=== PATIENT | female | born 1980 | race Asian ===

== ENCOUNTER 2020-04-13 09:27 | Inpatient (IN) | payer MEDICAID, SELFPAY ==
[~2020-04-13] VITALS: Ht 154.9 cm; Wt 56.7 kg
[2020-04-13 09:34] VITALS: BP 101/26
--- NOTE | 2020-04-13 09:44 | NUR ---
39 Y/O FEMALE BIBA FROM HOME, PT IS COVID + FOR ONE WEEK, PT IS SOB/ RESP EVEN AND UNLABORED. NO ACUTE DISTRESS NOTED AT THIS TIME. WHEEZING HEARD BILAT UPPER AND LOWER LUNGS. PT IS 85% RA AT THIS TIME. PT STATES SHE USED HER INHALER AND TOOK PREDNISONE THIS MORNING WELL ONE NEBULIZING TX AT HOME DENIES ANY N/V/D PMH: ASTHMA NKDA
[2020-04-13] MEDS ORDERED: AZITHROMYCIN 1,000 MG in DEXTROSE 5% 500 ML IV ONE (10:00)
[2020-04-13] MEDS ORDERED: ZINC SULF 220 MG CAP PO ONE (10:00)
[2020-04-13] MEDS ORDERED: DEXAMETHASONE 10 MG/ML VIAL IVP ONE (10:00)
--- NOTE | 2020-04-13 10:09 | NUR ---
COVID KHLOE SWAB DONE.
[2020-04-13 10:11] LABS: BASOPHILS % (AUTO) 0.1 % (0.0-2.0); EOSINOPHILS % (AUTO) 0.1 % (0.0-4.0); HEMATOCRIT 33.4 % (36-48); HEMOGLOBIN 10.6 g/dL (12.0-16.0); LYMPHOCYTES # (AUTO) 0.6 K/uL (2.5-16.5); LYMPHOCYTES % (AUTO) 6.1 % (20.5-51.1); MEAN CORPUSCULAR HEMOGLOBIN 22 pg (27-31); MEAN CORPUSCULAR HGB CONC 32 g/dL (33-37); MEAN CORPUSCULAR VOLUME 68.7 fL (80-94); MONOCYTES # (AUTO) 0.6 K/uL (0.8-1.0); NEUTROPHILS # (AUTO) 7.8 K/uL (1.8-7.7); NEUTROPHILS % (AUTO) 86.7 % (42.2-75.2); PLATELET COUNT (AUTO) 306 K/uL (140-450); RED BLOOD CELL COUNT(AUTO) 4.87 MIL/uL (4.20-5.40); RED CELL DISTRIBUTION WIDTH 14.2 % (11.6-13.7)
--- NOTE | 2020-04-13 10:22 | NUR ---
RSV, FLU AND COVID KHLOE SENT TO LAB
[2020-04-13 10:29] LABS: ALBUMIN 3.8 g/dL (3.4-5.0); CREATININE 0.6 mg/dL (0.6-1.3); TOTAL BILIRUBIN 0.5 mg/dL (0.0-1.0)
[2020-04-13 10:30] LABS: C-REACTIVE PROTEIN QUANT 10.3 mg/dL (0.0-0.9)
[2020-04-13 10:36] LABS: LACTATE DEHYDROGENASE 276 U/L (81-234)
[2020-04-13 10:39] LABS: RSV NEGATIVE (NEGATIVE)
[2020-04-13 10:58] LABS: PROTHROMBIN TIME 9.7 secs (10.8-13.4)
[2020-04-13] MEDS ORDERED: POTASSIUM CHLORIDE 10 MEQ TABER PO ONE (11:15)
[2020-04-13] MEDS ORDERED: DOCUSATE SODIUM 100 MG GELCAP PO PRN (14:15)
[2020-04-13] MEDS ORDERED: ACETAMINOPHEN 325 MG TAB PO PRN (14:15)
[2020-04-13] MEDS: NACL 0.9% 1,000 ML IV SCH (14:15)
[2020-04-13] MEDS ORDERED: POTASSIUM CHLORIDE 10 MEQ TABER PO PRN (14:15)
[2020-04-13] MEDS ORDERED: ONDANSETRON 4 MG/2 ML VIAL IM/IVP PRN (14:15)
[2020-04-13] MEDS ORDERED: ZOLPIDEM 5 MG TAB PO PRN (14:15)
[2020-04-13] MEDS ORDERED: ALBUTEROL HFA MDI 90 MCG/ACTUATION 8 GM INH PRN ×2 (14:20→22:00)
[2020-04-13] MEDS: LORATADINE 10 MG TAB PO SCH (15:50)
[2020-04-13] MEDS: methylPREDNISolone SS 125 MG/2 ML VIAL IVP SCH ×2 (15:50→21:00)
[2020-04-13] MEDS: FAMOTIDINE 20 MG TAB PO SCH (15:50)
[2020-04-13 17:33] LABS: CHOL/HDL RATIO 2.8 (1-4.5); FREE T4 (FREE THYROXINE) 1.37 ng/dL (0.76-1.46); MAGNESIUM 2.6 mg/dL (1.8-2.4); THYROID STIMULATING HORMONE 1.67 uIU/mL (0.34-3.74)
--- NOTE | 2020-04-13 19:30 | NUR ---
Patient appears to be resting comfortably in CHAIR Vital Signs within normal limits. Respirations even and unlabored.
--- NOTE | 2020-04-14 06:00 | NUR ---
Patient appears to be resting comfortably in CHAIR. Vital Signs STABLE,THE WHOLE NIGHT, NO COMPLAINED MADE
[2020-04-14] MEDS: NACL 0.9% 1,000 ML IV SCH ×2 (07:44→23:44)
[2020-04-14] MEDS ORDERED: remdesivir CLINICAL MONITORING 1 EA MISC MC PRN (08:15)
[2020-04-14] MEDS: methylPREDNISolone SS 125 MG/2 ML VIAL IVP SCH ×2 (08:37→21:00)
[2020-04-14] MEDS: LORATADINE 10 MG TAB PO SCH (08:38)
[2020-04-14] MEDS: FAMOTIDINE 20 MG TAB PO SCH (08:38)
[2020-04-14] MEDS: HYDROcodone/APAP 7.5/325 MG 1 TAB PO PRN (08:38)
[2020-04-14] MEDS ORDERED: COMMUNICATION ORDER MC SCH (09:00)
--- NOTE | 2020-04-14 09:03 | NUR ---
PATIENT HAS BEEN SCREENED AND CATEGORIZED MODERATE NUTRITION RISK. PATIENT WILL BE SEEN WITHIN 3-5 DAYS OF ADMISSION. 04/15/20 04/17/[address]
--- NOTE | 2020-04-14 09:04 | NUR ---
novel swab collected and sent to lab.
[2020-04-14 09:08] LABS: BASOPHILS % (AUTO) 0.2 % (0.0-2.0); EOSINOPHILS % (AUTO) 0.5 % (0.0-4.0); HEMATOCRIT 34.6 % (36-48); HEMOGLOBIN 10.9 g/dL (12.0-16.0); LYMPHOCYTES # (AUTO) 1.7 K/uL (2.5-16.5); LYMPHOCYTES % (AUTO) 26.3 % (20.5-51.1); MEAN CORPUSCULAR HEMOGLOBIN 22 pg (27-31); MEAN CORPUSCULAR HGB CONC 31 g/dL (33-37); MEAN CORPUSCULAR VOLUME 70.1 fL (80-94); MONOCYTES # (AUTO) 0.9 K/uL (0.8-1.0); MONOCYTES % (AUTO) 14.6 % (1.7-9.3); NEUTROPHILS # (AUTO) 3.7 K/uL (1.8-7.7); NEUTROPHILS % (AUTO) 58.4 % (42.2-75.2); PLATELET COUNT (AUTO) 362 K/uL (140-450); RED BLOOD CELL COUNT(AUTO) 4.94 MIL/uL (4.20-5.40); RED CELL DISTRIBUTION WIDTH 14.6 % (11.6-13.7); WHITE BLOOD COUNT (AUTO) 6.3 K/uL (4.8-10.8)
[2020-04-14] MEDS ORDERED: cefTRIAXone 1,000 MG VIAL ONE (09:21)
[2020-04-14] MEDS: ASCORBIC ACID 500 MG TAB PO SCH (09:40)
[2020-04-14] MEDS: ZINC SULF 220 MG CAP PO SCH (09:40)
[2020-04-14] MEDS: PANTOPRAZOLE 40 MG TABEC PO SCH (09:41)
[2020-04-14] MEDS: AZITHROMYCIN 250 MG TAB PO SCH (09:41)
[2020-04-14 09:48] LABS: ANION GAP 15.8 (8-16); CARBON DIOXIDE 26.8 mmol/L (21-32); CREATININE 0.6 mg/dL (0.6-1.3); POTASSIUM 3.6 mmol/L (3.5-5.1)
--- NOTE | 2020-04-14 10:43 | NUR ---
pt states unable to provide urine sample at this time.
--- NOTE | 2020-04-14 10:43 | NUR ---
Pt resting in chair. No acute distress noted. Pt oxygen level decreased to 2L NC, saO2 98%.
--- NOTE | 2020-04-14 10:48 | NUR ---
pt taken to restroom via w/c.
--- NOTE | 2020-04-14 11:00 | NUR ---
WHEELCHAIR ASSISTED FROM TENT TO ER BED 1.
[2020-04-14 11:46] LABS: BILIRUBIN,URINE NEGATIVE (NEGATIVE); BLOOD, URINE NEGATIVE (NEGATIVE); COLOR,URINE YELLOW (YELLOW); LEUKOCYTE ESTERASE ,URINE NEGATIVE (NEGATIVE); NITRITE, URINE NEGATIVE (NEGATIVE); PH,URINE 6.5 (5.0-9.0); UGLUCOSE NEGATIVE (NEGATIVE)
[2020-04-14 11:58] LABS: BARBITURATE, URINE NEGATIVE ng/ml (NEG <=200); BENZODIAZEPINE, URINE NEGATIVE ng/mL (NEG <=200); CANNABINOID, URINE NEGATIVE ng/mL (NEG <=50); COCAINE, URINE NEGATIVE ng/mL (NEG <=300); OPIATE, URINE POSITIVE ng/mL (NEG <=2000); PHENCYCLIDINE SCREEN,URINE NEGATIVE ng/mL (NEG <=25)
[2020-04-14] MEDS ORDERED: REMDESIVIR (EUA) 200 MG in NACL 0.9% 100 ML IV SCH (12:00)
--- NOTE | 2020-04-14 12:20 | NUR ---
SOCIAL WORK NOTE: Patient's Orientation Unable To Assess Information Provided By MING RILEY - BROTHLOPEZ Comments SW WAS UNABLE TO MEET PATIENT AT BEDSIDE DUE TO MEDICAL CONDITION. SW COMPLETED ASSESSMENT IWTH PATIENT'S BROTHER. Buggy Runner, Realtionship and Phone Number MING GLOVER [phone] Healthcare Power of Contract Recruiter No Does Patient Have a POLST No Identifying Problems No Social Work Triggers Is A Social Work Consult Needed No Mandate Report Filed No Explanation Of Identifying Problems PATIENT IS A 39-YEAR-OLD FEMALE ADMITTED FOR COVID/PNA/HYPOXIA. PATIENT HAS PMHX OF ASTHMA. PATIENT'S BROTHER REPOTED NO HISTORY OF SUBSTANCE ABUSE OR MENTAL HEALTH. Admitted From Home Pre-Admission Level Of Functioning Status Independent/Ambulatory Prior Resources/Services Used In Last 12 Months No Prior Resources Used Prior DME No Prior DME Used Dialysis Comments N/A Living Situation Apartment Lives With Family Home Support No Caregiver Issues Financial Issues No Known Financial Issue Factors/Needs No D/C Needs Identified Pt/Rep Participated In Discharge Plan Yes Patient/Family Agress With Discharge Plan Yes Discharge Plan Comments TENTATIVE DISCHARGE PLAN IS FOR PATIENT TO RETURN HOME. DC Plan Status Initiated
[2020-04-14 13:01] LABS: RBC,URINE 0-5 /HPF (0-5); WBC,URINE 0-5 /HPF (0-5)
[2020-04-14 13:02] LABS: APPEARANCE,URINE SLIGHTLY HAZY (CLEAR)
--- NOTE | 2020-04-14 16:38 | NUR ---
Stable VSS Afebrile Mild SOB C/O chest pain Given [place] as ordered
--- NOTE | 2020-04-14 19:30 | NUR ---
RECEIVED REPORT FROM BRIDGER GILES FOR CONTINUITY OF CARE.
--- NOTE | 2020-04-14 21:10 | NUR ---
Kenyon ford in [facility] - 04/15/20 at 0249 by DONAVAN JORGE AT THIS TIME WAS 166.
--- NOTE | 2020-04-14 21:40 | NUR ---
PT LAYING IN BED IN NO ACUTE DISTRESS NOTED, VSS. BREATHING EVEN AND UNLABORED 2 L OXYGEN VIA NC. SPO2 AT 96%. IVF RUNNING AT THIS TIME OF 0.9% NS. CONTINUES ON CARDIAC MONITORING, PULSE OXIMETRY AND BP MONITORING. BED LOCKED AND IN LOWEST POSITION. SIDE RAIL X1 UP FOR SAFETY.
[2020-04-15] MEDS: HYDROcodone/APAP 7.5/325 MG 1 TAB PO PRN ×3 (05:05→20:40)
[2020-04-15] MEDS: guaiFENesin DM 200/20 MG-10 ML 10 ML UDC PO PRN (05:05)
--- NOTE | 2020-04-15 05:15 | NUR ---
PT C/O COUGH AND CHEST PAIN DUE TO EXCESIVE COUGHING, PT WAS GIVEN ROBITUSSIN AND NORCO FOR PAIN. WILL CONTINUE TO MONITOR.
--- NOTE | 2020-04-15 06:00 | NUR ---
PT NO LONGER C/O CHEST PAIN R/T EXCESSIVE COUGHING AT THIS TIME. STATES HER PAIN IS 0/10.
--- NOTE | 2020-04-15 07:23 | NUR ---
Received report from CHAN Aiken. Transfer of care at this time.
--- NOTE | 2020-04-15 07:28 | NUR ---
REPORT GIVEN TO HEATH GILES FOR CONTINUITY OF CARE.
--- NOTE | 2020-04-15 07:44 | NUR ---
IV to left AC infiltrating, d/c'd. Established new IV to left hand 22G, good blood return. Pt resting, VSS, BP 90s/50s, HR 50s, pt states this is her baseline, asymptomatic at this time. Will continue to monitor.
[2020-04-15 08:08] LABS: T4 (THYROXINE) 8.8 ug/dL (4.5-12.0)
--- NOTE | 2020-04-15 08:30 | NUR ---
Provided breakfast tray, HOB elevated, VSS, will continue to monitor.
[2020-04-15 08:32] LABS: BASOPHILS % (AUTO) 0.1 % (0.0-2.0); HEMATOCRIT 29.9 % (36-48); HEMOGLOBIN 9.4 g/dL (12.0-16.0); LYMPHOCYTES # (AUTO) 0.7 K/uL (2.5-16.5); MEAN CORPUSCULAR HEMOGLOBIN 22 pg (27-31); MEAN CORPUSCULAR HGB CONC 31 g/dL (33-37); MEAN CORPUSCULAR VOLUME 69.5 fL (80-94); MONOCYTES # (AUTO) 0.6 K/uL (0.8-1.0); MONOCYTES % (AUTO) 8.7 % (1.7-9.3); NEUTROPHILS # (AUTO) 5.4 K/uL (1.8-7.7); NEUTROPHILS % (AUTO) 80.2 % (42.2-75.2); PLATELET COUNT (AUTO) 341 K/uL (140-450); RED BLOOD CELL COUNT(AUTO) 4.31 MIL/uL (4.20-5.40); RED CELL DISTRIBUTION WIDTH 14.4 % (11.6-13.7); WHITE BLOOD COUNT (AUTO) 6.7 K/uL (4.8-10.8)
[2020-04-15] MEDS: LORATADINE 10 MG TAB PO SCH (08:58)
[2020-04-15] MEDS: AZITHROMYCIN 250 MG TAB PO SCH (09:00)
[2020-04-15] MEDS: PANTOPRAZOLE 40 MG TABEC PO SCH (09:01)
[2020-04-15] MEDS: FAMOTIDINE 20 MG TAB PO SCH (09:01)
[2020-04-15] MEDS: ZINC SULF 220 MG CAP PO SCH (09:02)
[2020-04-15] MEDS: ASCORBIC ACID 500 MG TAB PO SCH (09:02)
[2020-04-15 09:32] LABS: ALBUMIN 3.1 g/dL (3.4-5.0); ANION GAP 13.8 (8-16); CARBON DIOXIDE 24.1 mmol/L (21-32); CREATININE 0.5 mg/dL (0.6-1.3); MAGNESIUM 2.4 mg/dL (1.8-2.4); PHOSPHORUS 2.8 mg/dL (2.5-4.9); POTASSIUM 3.9 mmol/L (3.5-5.1); TOTAL BILIRUBIN 0.3 mg/dL (0.0-1.0)
[2020-04-15] MEDS ORDERED: cefTRIAXone 1,000 MG VIAL ONE (10:11)
--- NOTE | 2020-04-15 10:46 | NUR ---
Pt up to bedside commode, no signs of repiratory distress, will continue to monitor.
--- NOTE | 2020-04-15 11:52 | NUR ---
Pt given lunch tray, HOB elevated, VSS stable, will continue to monitor.
[2020-04-15] MEDS: REMDESIVIR (EUA) 100 MG in NACL 0.9% 100 ML IV SCH (12:45)
--- NOTE | 2020-04-15 13:46 | NUR ---
Pt requests medication for abdominal cramping 09/30.
--- NOTE | 2020-04-15 14:17 | NUR ---
Titrated O2 to 3LNC O2 at 96%, will continue to monitor.
--- NOTE | 2020-04-15 14:30 | NUR ---
Dr. Amaya, mail sorter and delivery at pt bedside.
--- NOTE | 2020-04-15 15:09 | NUR ---
VINCENT ANGEL: RECEIVED ORDER FOR HOME FAXED ORDER TO [facility] Addendum: 04/15/20 at 1604 by Annie Salazar CM VINCENT ANGEL: SPOKE TO ER NURSE PATIENT SATS AT 94% ON ROOM AIR. THIS DOES NOT QUALIFY PATIENT FOR OXYGEN Addendum: 04/15/20 at 1619 by Annie Salazar CM VINCENT ANGEL: RECEIVED A CALL FROM RE[facility] AT [facility] PATIENT DOES NOT QUALIFY FOR OXYGEN
[2020-04-15] MEDS: NACL 0.9% 1,000 ML IV SCH (15:49)
--- NOTE | 2020-04-15 15:49 | NUR ---
RT at bedside for breathing treatment.
--- NOTE | 2020-04-15 18:01 | NUR ---
Pt repositioned, VSS, will continue to monitor.
--- NOTE | 2020-04-15 19:26 | NUR ---
Gave report to CHAN Chowdhury, transfered care at this time.
--- NOTE | 2020-04-15 20:40 | NUR ---
C/O PAIN RATED 5/10. MEDICATED ORDERED. DINNER TRAY SERVED
--- NOTE | 2020-04-15 22:00 | NUR ---
RESTING MORE COMFORTABLY. RT IN PROGRESS
--- NOTE | 2020-04-16 02:00 | NUR ---
RESTING IN BED WITH EYES CLOSED. RESPIRATIONS REGULAR AND UNLABORED.
[2020-04-16] MEDS: guaiFENesin DM 200/20 MG-10 ML 10 ML UDC PO PRN ×3 (06:02→23:21)
--- NOTE | 2020-04-16 07:14 | NUR ---
REPORT TO CHAN SERRANO
--- NOTE | 2020-04-16 07:16 | NUR ---
Report received from CHAN Chowdhury for continuity of care
[2020-04-16 08:20] LABS: BASOPHILS % (AUTO) 0.4 % (0.0-2.0); EOSINOPHILS % (AUTO) 0.7 % (0.0-4.0); HEMATOCRIT 32.5 % (36-48); LYMPHOCYTES # (AUTO) 2.1 K/uL (2.5-16.5); LYMPHOCYTES % (AUTO) 34.5 % (20.5-51.1); MEAN CORPUSCULAR HEMOGLOBIN 22 pg (27-31); MEAN CORPUSCULAR HGB CONC 31 g/dL (33-37); MEAN CORPUSCULAR VOLUME 70.5 fL (80-94); MONOCYTES # (AUTO) 0.4 K/uL (0.8-1.0); MONOCYTES % (AUTO) 6.2 % (1.7-9.3); NEUTROPHILS # (AUTO) 3.5 K/uL (1.8-7.7); NEUTROPHILS % (AUTO) 58.2 % (42.2-75.2); PLATELET COUNT (AUTO) 379 K/uL (140-450); RED BLOOD CELL COUNT(AUTO) 4.61 MIL/uL (4.20-5.40); RED CELL DISTRIBUTION WIDTH 14.4 % (11.6-13.7)
[2020-04-16 08:36] LABS: ALBUMIN 3.2 g/dL (3.4-5.0); CARBON DIOXIDE 24.4 mmol/L (21-32); CREATININE 0.7 mg/dL (0.6-1.3); MAGNESIUM 1.7 mg/dL (1.8-2.4); PHOSPHORUS 3.3 mg/dL (2.5-4.9); POTASSIUM 3.4 mmol/L (3.5-5.1); TOTAL BILIRUBIN 0.4 mg/dL (0.0-1.0)
--- NOTE | 2020-04-16 08:45 | NUR ---
Patient asking for albuteral breathing tx, patient taking O2 off. Called RT to give treatment
--- NOTE | 2020-04-16 09:10 | NUR ---
Patient brought regular diet tray for breakfast, ate 100% of tray, tolerated well
[2020-04-16] MEDS: NACL 0.9% 1,000 ML IV SCH (09:15)
--- NOTE | 2020-04-16 10:10 | NUR ---
SATURATION 98% ON SUPPLEMENTAL OXYGEN AT 4 LPM VIA NC POST HHN THERAPY TITRATED FIO2 TO 2 LPM
[2020-04-16] MEDS: LORATADINE 10 MG TAB PO SCH (11:05)
[2020-04-16] MEDS: PANTOPRAZOLE 40 MG TABEC PO SCH (11:06)
[2020-04-16] MEDS: FAMOTIDINE 20 MG TAB PO SCH (11:06)
[2020-04-16] MEDS: ZINC SULF 220 MG CAP PO SCH (11:06)
[2020-04-16] MEDS: ASCORBIC ACID 500 MG TAB PO SCH (11:06)
[2020-04-16] MEDS: AZITHROMYCIN 250 MG TAB PO SCH (11:07)
[2020-04-16] MEDS ORDERED: cefTRIAXone 1,000 MG VIAL ONE (11:11)
[2020-04-16] MEDS: REMDESIVIR (EUA) 100 MG in NACL 0.9% 100 ML IV SCH (12:37)
--- NOTE | 2020-04-16 12:38 | NUR ---
Patient asking for another HHN breathing treatment. Notified RT that patient would like treatment as soon as able
--- NOTE | 2020-04-16 12:45 | NUR ---
Patient c/o cough, robitussin cough syrup given
--- NOTE | 2020-04-16 13:09 | NUR ---
Patient brought regular diet tray for lunch, ate ~ 50%, tolerate well
--- NOTE | 2020-04-16 15:04 | NUR ---
Patient using bedside commode to void, had 2nd BM amd large amount of urine, patient on her period. Tolerated well, gait steady. IV patient left wrist #22g with NS at 60cc/hr.
[2020-04-16] MEDS ORDERED: MAGNESIUM OXIDE 400 MG TAB PO SCH (15:55)
[2020-04-16] MEDS ORDERED: POTASSIUM CHLORIDE 10 MEQ TABER PO SCH (15:55)
--- NOTE | 2020-04-16 17:59 | NUR ---
Patient c/o lung/rib pain from coughing, [place] 7.5mg PO given, will continue to monitor
[2020-04-16] MEDS: HYDROcodone/APAP 7.5/325 MG 1 TAB PO PRN ×2 (18:02→23:22)
--- NOTE | 2020-04-16 18:16 | NUR ---
Patient asleep after [place], VVS, in NAD, resp even and unlabored, O2 sat 97%
--- NOTE | 2020-04-16 19:39 | NUR ---
Detailed report given to CHAN Anthony for principal technical writer. Questions answered, meds and orders reviewed.
--- NOTE | 2020-04-16 19:40 | NUR ---
RECEIVED REPORT FROM CHAN SERRANO FOR CONTINUATION OF CARE AT THIS TIME.
--- NOTE | 2020-04-16 20:00 | NUR ---
PT IS RESTING AND POSITIONED FOR COMFORT. BED IS LOCKED AND IN LOWEST POSITION. PT IS CONNECTED TO THE HELPDESK ANALYST. SAO2@98% ON 4L VIA N/C. SIDE RAILSX1. PT IS NOT IN ANY ACUTE DISTRESS AT THIS TIME. CALL LIGHT IS WITHIN REACH. WILL CONTINUE TO MONITOR.
--- NOTE | 2020-04-16 22:00 | NUR ---
PT IS RESTING AND POSITIONED FOR COMFORT. BED IS LOCKED AND IN LOWEST POSITION. PT IS CONNECTED TO THE LOGISTICS PLANNER. SAO2@97% ON 4L VIA N/C. SIDE RAILSX1. PT IS NOT IN ANY ACUTE DISTRESS AT THIS TIME. CALL LIGHT IS WITHIN REACH. WILL CONTINUE TO MONITOR.
--- NOTE | 2020-04-16 23:00 | NUR ---
PT C/O PAIN AND COUGH, PRN NORCO AND COUGH MEDICATION TO BE ADMIN
--- NOTE | 2020-04-17 | NUR ---
PT STATED SHE WAS HUNGRY. PROVIDED PT WITH A TUNA SANDWICH. PT POSITIONED FOR COMFORT. BED IS LOCKED AND IN LOWEST POSITION. PT IS CONNECTED TO THE INTAKE MANAGER. SAO2@97% ON 4L VIA N/C. SIDE RAILSX1. PT IS NOT IN ANY ACUTE DISTRESS AT THIS TIME. CALL LIGHT IS WITHIN REACH. WILL CONTINUE TO MONITOR.
[2020-04-17] MEDS: NACL 0.9% 1,000 ML IV SCH ×2 (01:44→19:30)
--- NOTE | 2020-04-17 02:00 | NUR ---
PT PULLED OUT IV-IV CATHETER INTACT. NEW IV ESTABLISHED 20G IN THE LEFT HAND RUNNING NS @60MLS/HR PER MD ORDER, PT TOLERATED PROCEDURE WELL. PT CONNECTED TO THE LAMBSKIN TRIMMER. BED IS LOCKED AND IN LOWEST POSITION. SIDE RAILSX1. WILL CONTINUE TO MONITOR.
--- NOTE | 2020-04-17 02:14 | NUR ---
[facility] SWAB COLLECTED AND TAKEN TO LAB.
--- NOTE | 2020-04-17 04:00 | NUR ---
PT IS ASLEEP. VISIBLE RISE AND FALL OF CHEST NOTED. PT POSITIONED FOR COMFORT. BED IS LOCKED AND IN LOWEST POSITION. PT IS CONNECTED TO THE AUGER PRESS OPERATOR. SAO2@98% ON 4L VIA N/C. SIDE RAILSX1. PT IS NOT IN ANY ACUTE DISTRESS AT THIS TIME. CALL LIGHT IS WITHIN REACH. WILL CONTINUE TO MONITOR.
--- NOTE | 2020-04-17 06:00 | NUR ---
PT IS ASLEEP. VISIBLE RISE AND FALL OF CHEST NOTED. PT POSITIONED FOR COMFORT. BED IS LOCKED AND IN LOWEST POSITION. PT IS CONNECTED TO THE MANAGING DIRECTOR. SAO2@97% ON 4L VIA N/C. SIDE RAILSX1. PT IS NOT IN ANY ACUTE DISTRESS AT THIS TIME. CALL LIGHT IS WITHIN REACH. WILL CONTINUE TO MONITOR.
--- NOTE | 2020-04-17 06:55 | NUR ---
LAB AT BEDSIDE
--- NOTE | 2020-04-17 07:20 | NUR ---
REPORT GIVEN TO CHAN GAGNON FOR TRANSFER OF CARE. PT IS AWAKE. A/OX4. PT POSITIONED FOR COMFORT. BED IS LOCKED AND IN LOWEST POSITION. PT IS CONNECTED TO THE MIXER OPERATOR HELPER HOT METAL. SAO2@98% ON 4L VIA N/C. NS RUNNIG PER MD ORDERS. SIDE RAILSX1. PT IS NOT IN ANY ACUTE DISTRESS AT THIS TIME. CALL LIGHT IS WITHIN REACH.
--- NOTE | 2020-04-17 07:50 | NUR ---
Received report from CHAN Anthony. Pt found sitting in bed resting comfortably. VSS. Pt found on nasal canula 4L at 96%. Pt has NS running @60 ml/hr, IV to left hand 20 gauge, patent, no signs of infiltration. Pt denies any pain at this time. Denies SOB. Pt states "I'm feeling better today." Pt found NSR on the monitor. All needs addressed at this time. BSC emptied, cleaned and replaced bed xiao for patient. Aloe wipes left at bedside for patient. Pt given wet cloth to wipe face. Call light left within reach. Pt educated to use call light for any needs. Pt verbalized understanding.
[2020-04-17 07:55] LABS: BASOPHILS % (AUTO) 0.3 % (0.0-2.0); EOSINOPHILS % (AUTO) 0.3 % (0.0-4.0); HEMATOCRIT 29.5 % (36-48); HEMOGLOBIN 9.4 g/dL (12.0-16.0); LYMPHOCYTES # (AUTO) 1.5 K/uL (2.5-16.5); LYMPHOCYTES % (AUTO) 23.4 % (20.5-51.1); MEAN CORPUSCULAR HEMOGLOBIN 22 pg (27-31); MEAN CORPUSCULAR HGB CONC 32 g/dL (33-37); MEAN CORPUSCULAR VOLUME 68.7 fL (80-94); MONOCYTES # (AUTO) 0.7 K/uL (0.8-1.0); MONOCYTES % (AUTO) 11.6 % (1.7-9.3); NEUTROPHILS % (AUTO) 64.4 % (42.2-75.2); PLATELET COUNT (AUTO) 365 K/uL (140-450); RED BLOOD CELL COUNT(AUTO) 4.29 MIL/uL (4.20-5.40); RED CELL DISTRIBUTION WIDTH 14.2 % (11.6-13.7); WHITE BLOOD COUNT (AUTO) 6.2 K/uL (4.8-10.8)
--- NOTE | 2020-04-17 07:59 | NUR ---
Dr. Hermosillo evaluating pt at bedside.
[2020-04-17 08:17] LABS: ALBUMIN 3.1 g/dL (3.4-5.0); BILIRUBIN,DIRECT 0.1 mg/dL (0.0-0.3); TOTAL BILIRUBIN 0.4 mg/dL (0.0-1.0)
--- NOTE | 2020-04-17 08:46 | NUR ---
PT PROVIDED WITH BREAKFAST TRAY. EATING. NO DISTRESS NOTED.
[2020-04-17 08:55] LABS: ALBUMIN 3.1 g/dL (3.4-5.0); ANION GAP 12.8 (8-16); CARBON DIOXIDE 27.5 mmol/L (21-32); CREATININE 0.6 mg/dL (0.6-1.3); MAGNESIUM 2.2 mg/dL (1.8-2.4); PHOSPHORUS 3.2 mg/dL (2.5-4.9); POTASSIUM 3.3 mmol/L (3.5-5.1); TOTAL BILIRUBIN 0.4 mg/dL (0.0-1.0)
[2020-04-17] MEDS: AZITHROMYCIN 250 MG TAB PO SCH (08:59)
[2020-04-17] MEDS: LORATADINE 10 MG TAB PO SCH (08:59)
[2020-04-17] MEDS: FAMOTIDINE 20 MG TAB PO SCH (09:00)
[2020-04-17] MEDS: PANTOPRAZOLE 40 MG TABEC PO SCH (09:00)
[2020-04-17] MEDS: ASCORBIC ACID 500 MG TAB PO SCH (09:00)
[2020-04-17] MEDS: ZINC SULF 220 MG CAP PO SCH (09:00)
[2020-04-17] MEDS ORDERED: cefTRIAXone 1,000 MG VIAL ONE (10:53)
--- NOTE | 2020-04-17 11:00 | NUR ---
04/17/20 RD INITIAL ASSESSMENT COMPLETED PLEASE REFER TO NUTRITION ASSESSMENT UNDER CARE ACTIVITY FOR ESTIMATED NUTRITIONAL NEEDS. 1. CONTINUE REGULAR DIET TOLERATED 2. CONTINUE ENSURE BID 3. RD TO FOLLOW-UP 3-5 DAYS, MODERATE RISK INDIRA JOHNSON RD
[2020-04-17] MEDS: guaiFENesin DM 200/20 MG-10 ML 10 ML UDC PO PRN ×2 (11:29→21:30)
--- NOTE | 2020-04-17 11:30 | NUR ---
PT MEDICATED FOR COUGH PER PRN MEDICATIONS.
[2020-04-17] MEDS: REMDESIVIR (EUA) 100 MG in NACL 0.9% 100 ML IV SCH (12:00)
[2020-04-17] MEDS: HYDROcodone/APAP 7.5/325 MG 1 TAB PO PRN ×2 (14:51→21:30)
--- NOTE | 2020-04-17 14:57 | NUR ---
PATIENT MEDICATED FOR CHEST PAIN 5/10 PER PATIENT DUE TO COUGHING IT CAUSES HER CHEST PAIN, SITTING UP IN BED DOES NOT APPEAR TO BE IN ANY DISTRESS
--- NOTE | 2020-04-17 19:30 | NUR ---
RECEIVED REPORT FROM KATERINA RN FOR TRANSFER OF CARE. PT IS AWAKE. A/OX4. PT POSITIONED FOR COMFORT. BED IS LOCKED AND IN LOWEST POSITION. PT IS CONNECTED TO THE AUTOMOBILE MECHANIC RADIATOR. SAO2@99% ON 4L VIA N/C. NS RUNNIG PER MD ORDERS. SIDE RAILSX1. PT IS NOT IN ANY ACUTE DISTRESS AT THIS TIME. CALL LIGHT IS WITHIN REACH.
--- NOTE | 2020-04-17 20:30 | NUR ---
PROVIDED PT WITH HER DINNER MEAL TRAY
--- NOTE | 2020-04-17 21:00 | NUR ---
PT C/O PLEURITIC PAIN 7/10 WHEN COUGHING AND COUGH. PT REQUESTED PRN NORCO AND COUGH MEDICATION
--- NOTE | 2020-04-17 21:30 | NUR ---
CALLED AND GAVE REPORT TO CHAN DOUGLAS FOR TRANSFER OF CARE AND ADMISSION TO TELEMETRY.
[2020-04-17] MEDS ORDERED: BECL10.62 INH (21:40)
--- NOTE | 2020-04-17 21:50 | NUR ---
Patient will be admitted to care of . Admited to TELEMETRY. Will go to [id number]. Belongings list completed. Report to CHAN DOUGLAS.
[2020-04-17 22:10] VITALS: BP 109/55
--- NOTE | 2020-04-17 22:15 | NUR ---
RECEIVED REPORT FROM [facility] ER NURSE PATIENT IS AWAKE, ALERT, AND COOPERATIVE. RESPIRATION EVEN UNLABORED ON 4L NC O2. NO DISTRESS NOTED. SKIN IS WARM AND DRY. IV PATENT AND INTACT. HEART RATE REGULAR. LUNGS SOUNDS HEARD WHEEZES. BOWEL SOUNDS PRESENTS IN ALL QUADRANTS. ABDOMEN SOFT AND NON-TENDER. MRSA SCREEN DONE. VITALS WERE TAKEN. PLAN OF CARE WAS DISCUSSED. ALL SAFETY MEASURES IN PLACE. BED IS AT LOW POSITION. CALL LIGHT WITHIN REACH. WILL CONTINUE TO MONITOR.
--- NOTE | 2020-04-18 | NUR ---
MADE ROUNDS. PATIENT IS SLEEPING RESPIRATION EVEN UNLABORED ON 4L NC O2. NO DISTRESS NOTED. WILL CONTINUE TO MONITOR.
--- NOTE | 2020-04-18 02:45 | NUR ---
MADE ROUNDS. PATIENT IS SLEEPING RESPIRATION EVEN UNLABORED ON 4L NC O2. NO DISTRESS NOTED. WILL CONTINUE TO MONITOR.
[2020-04-18 04:00] VITALS: BP 95/51
--- NOTE | 2020-04-18 06:05 | NUR ---
PATIENT POTASSIUM LEVEL IS 3.3. PRN K-DUR GIVEN PER ORDER. WILL CONTINUE TO MONITOR.
--- NOTE | 2020-04-18 07:37 | NUR ---
ENDORSED PATIENT TO DAY SHIFT NURSE FOR CONTINUITY OF CARE.
--- NOTE | 2020-04-18 07:42 | NUR ---
RECEIVED REPORT FROM NIGHTSHIFT NURSE. PT RESTING IN BED. ABLE TO MAKE NEEDS KNOWN. RESPIRATIONS EVEN AND UNLABORED WITH NO SOB OR RESPIRATORY DISTRESS. SKIN WARM AND DRY TO TOUCH. IV SITE IN L HAND 20G IS CLEAN, DRY, AND INTACT. SAFETY MEASURES IN PLACE. WILL CONTINUE TO MONITOR
[2020-04-18 08:00] VITALS: BP 102/63
[2020-04-18] MEDS: ZINC SULF 220 MG CAP PO SCH (09:40)
[2020-04-18] MEDS: PANTOPRAZOLE 40 MG TABEC PO SCH (09:41)
[2020-04-18] MEDS: AZITHROMYCIN 250 MG TAB PO SCH (09:41)
[2020-04-18] MEDS: FAMOTIDINE 20 MG TAB PO SCH (09:41)
[2020-04-18] MEDS: ASCORBIC ACID 500 MG TAB PO SCH (09:42)
[2020-04-18] MEDS: LORATADINE 10 MG TAB PO SCH (09:42)
[2020-04-18 09:43] LABS: ANION GAP 12.6 (8-16); CARBON DIOXIDE 26.8 mmol/L (21-32); CREATININE 0.5 mg/dL (0.6-1.3); POTASSIUM 3.4 mmol/L (3.5-5.1)
[2020-04-18 09:45] LABS: BASOPHILS % (AUTO) 0.2 % (0.0-2.0); EOSINOPHILS % (AUTO) 0.5 % (0.0-4.0); HEMATOCRIT 29.3 % (36-48); HEMOGLOBIN 9.2 g/dL (12.0-16.0); LYMPHOCYTES # (AUTO) 1.6 K/uL (2.5-16.5); LYMPHOCYTES % (AUTO) 22.1 % (20.5-51.1); MEAN CORPUSCULAR HEMOGLOBIN 22 pg (27-31); MEAN CORPUSCULAR HGB CONC 31 g/dL (33-37); MEAN CORPUSCULAR VOLUME 69.1 fL (80-94); MONOCYTES # (AUTO) 0.7 K/uL (0.8-1.0); MONOCYTES % (AUTO) 9.9 % (1.7-9.3); NEUTROPHILS # (AUTO) 4.9 K/uL (1.8-7.7); NEUTROPHILS % (AUTO) 67.3 % (42.2-75.2); PLATELET COUNT (AUTO) 354 K/uL (140-450); RED BLOOD CELL COUNT(AUTO) 4.23 MIL/uL (4.20-5.40); RED CELL DISTRIBUTION WIDTH 14.5 % (11.6-13.7); WHITE BLOOD COUNT (AUTO) 7.2 K/uL (4.8-10.8)
[2020-04-18 09:57] LABS: ALBUMIN 3.1 g/dL (3.4-5.0); BILIRUBIN,DIRECT 0.1 mg/dL (0.0-0.3); TOTAL BILIRUBIN 0.3 mg/dL (0.0-1.0)
[2020-04-18 09:58] LABS: MAGNESIUM 2.3 mg/dL (1.8-2.4); PHOSPHORUS 3.3 mg/dL (2.5-4.9)
[2020-04-18] MEDS: guaiFENesin DM 200/20 MG-10 ML 10 ML UDC PO PRN ×2 (09:58→21:28)
--- NOTE | 2020-04-18 10:00 | NUR ---
ADMINISTERED SCHED MED PRESCRIBED PER MD ORDER. PT TOLERATED WELL. PT COMPLAINED OF MODERATE PAIN AND COUGH. PRN NORCO AND ROBITUSSIN ADMINISTERED PRESCRIBED PER MD ORDER. MEDICATION EDUCATION PERFORMED. PT CONFUSED AND UNABLE TO VERBALIZED UNDERSTANDING. SAFETY MEASURES IN PLACE. WILL CONTINUE TO MONITOR
[2020-04-18] MEDS: HYDROcodone/APAP 7.5/325 MG 1 TAB PO PRN ×2 (10:04→21:27)
[2020-04-18] MEDS: NACL 0.9% 1,000 ML IV SCH (11:04)
--- NOTE | 2020-04-18 11:12 | NUR ---
ADMINISTERED SCHED MED PRESCRIBED PER MD ORDER. PT TOLERATED WELL. MEDICATION EDUCATION PERFORMED. PT VERBALIZED UNDERSTANDING. SAFETY MEASURES IN PLACE. WILL CONTINUE TO MONITOR
[2020-04-18 12:00] VITALS: BP 99/60
[2020-04-18] MEDS: REMDESIVIR (EUA) 100 MG in NACL 0.9% 100 ML IV SCH (12:07)
--- NOTE | 2020-04-18 12:14 | NUR ---
ADMINISTERED SCHED MED PRESCRIBED PER MD ORDER. PT TOLERATED WELL. MEDICATION EDUCATION PERFORMED. PT VERBALIZED UNDERSTANDING. SAFETY MEASURES IN PLACE. WILL CONTINUE TO MONITOR
[2020-04-18 16:00] VITALS: BP 106/60
--- NOTE | 2020-04-18 16:15 | NUR ---
PT FAMILY BROUGHT SOME OF HER PERSONAL BELONGINGS AND WAS GIVEN TO PATIENT. WILL CONTINUE TO MONITOR
--- NOTE | 2020-04-18 18:30 | NUR ---
HOURLY ROUNDING. PT RESTING IN BED. ABLE TO MAKE NEEDS KNOWN. RESPIRATIONS EVEN AND UNLABORED WITH NO SOB OR RESPIRATORY DISTRESS. SKIN WARM AND DRY TO TOUCH. SAFETY MEASURES IN PLACE. WILL CONTINUE TO MONITOR
--- NOTE | 2020-04-18 19:13 | NUR ---
ENDORSED TO NIGHTSHIFT FOR CONTINUITY OF CARE. PT IS STABLE
--- NOTE | 2020-04-18 19:15 | NUR ---
RECEIVED PT AWAKE USING HER CELLPHONE, AAOX4, DENIES ANY PAIN, NO RESP DISTRESS NOTED, SAT-99% ON 4L NC, TITRATE O2 TO 3L, OCCASIONAL DR COUGH NOTED, IVF INFUSING WELL, MAINTAINED ON DROPLET PRECAUTION FOR COVID POSITIVE, SAFETY MEASURES IN PLACE, CALL LIGHT WITHIN REACH.
[2020-04-18 20:00] VITALS: BP 92/56
--- NOTE | 2020-04-18 21:30 | NUR ---
PT COMPLAINING OF CHEST PAIN/MUSCLE PAIN WHEN COUGHING, MEDICATED PRN WITH NORCO AND ROBITUSSIN PER PT REQUEST, ALL NEEDS ATTENDED.
[2020-04-19] MEDS ORDERED: FLU VACCINE QS2020-21 0.5 ML SYR IMVAC PRN ×2 (00:45→11:15)
--- NOTE | 2020-04-19 02:15 | NUR ---
PT ASSESSED FOR PRN TX , NO WHEEZING OR DISTRESS NOTED.
[2020-04-19] MEDS: NACL 0.9% 1,000 ML IV SCH (03:35)
[2020-04-19 04:00] VITALS: BP 99/56
--- NOTE | 2020-04-19 04:10 | NUR ---
PT SLEEPING, EASILY AROUSABLE, VITAL SIGNS STABLE, HR-49 BPM, DENIES ANY PAIN, NO SOB NOTED, SAT-99% ON 3L NC O2, IVF INFUSING WELL, MONITORED CLOSELY.
[2020-04-19 06:45] LABS: BASOPHILS % (AUTO) 0.2 % (0.0-2.0); EOSINOPHILS % (AUTO) 0.4 % (0.0-4.0); HEMATOCRIT 30.4 % (36-48); HEMOGLOBIN 9.6 g/dL (12.0-16.0); LYMPHOCYTES # (AUTO) 1.9 K/uL (2.5-16.5); LYMPHOCYTES % (AUTO) 19.7 % (20.5-51.1); MEAN CORPUSCULAR HEMOGLOBIN 22 pg (27-31); MEAN CORPUSCULAR HGB CONC 32 g/dL (33-37); MEAN CORPUSCULAR VOLUME 68.8 fL (80-94); MONOCYTES # (AUTO) 0.8 K/uL (0.8-1.0); MONOCYTES % (AUTO) 8.6 % (1.7-9.3); NEUTROPHILS # (AUTO) 6.9 K/uL (1.8-7.7); NEUTROPHILS % (AUTO) 71.1 % (42.2-75.2); PLATELET COUNT (AUTO) 387 K/uL (140-450); RED BLOOD CELL COUNT(AUTO) 4.42 MIL/uL (4.20-5.40); RED CELL DISTRIBUTION WIDTH 14.7 % (11.6-13.7); WHITE BLOOD COUNT (AUTO) 9.7 K/uL (4.8-10.8)
[2020-04-19 07:42] LABS: ANION GAP 11.5 (8-16); CARBON DIOXIDE 28.6 mmol/L (21-32); CREATININE 0.6 mg/dL (0.6-1.3); POTASSIUM 4.1 mmol/L (3.5-5.1)
[2020-04-19 07:53] LABS: MAGNESIUM 2.3 mg/dL (1.8-2.4); PHOSPHORUS 3.2 mg/dL (2.5-4.9)
[2020-04-19 08:00] VITALS: BP 91/50
--- NOTE | 2020-04-19 08:00 | NUR ---
RECEIVED REPORT FROM SPIRAL GEAR GENERATOR FOR CONTINUITY OF CARE. INITIAL ASSESSMENT INITIATED. PATIENT ALERT AWAKE ORIENTED X4, NOT IN DISTRESS NOTED. ON ROOM AIR SATURATION 95%. DENIES PAIN AND SOB. WITH IVF ON GOING AND INFUSING WELL. NEEDS ATTENDED. WILL CONTINUE TO MONITOR.
[2020-04-19] MEDS ORDERED: DEXAMETHASONE 4 MG TAB PO SCH (09:00)
[2020-04-19] MEDS: LORATADINE 10 MG TAB PO SCH (09:27)
[2020-04-19] MEDS: FAMOTIDINE 20 MG TAB PO SCH (09:28)
[2020-04-19] MEDS: ASCORBIC ACID 500 MG TAB PO SCH (09:29)
[2020-04-19] MEDS: PANTOPRAZOLE 40 MG TABEC PO SCH (09:29)
[2020-04-19] MEDS: ZINC SULF 220 MG CAP PO SCH (09:29)
[2020-04-19] MEDS ORDERED: ASPI-1205 PO (10:54)
[2020-04-19] MEDS ORDERED: ALBU0.0912 IH (10:54)
[2020-04-19] MEDS ORDERED: AZIT250T3 PO (10:54)
[2020-04-19] MEDS ORDERED: DEC1 PO (10:54)
--- NOTE | 2020-04-19 12:00 | NUR ---
PATIENT DC PAPERS SIGNED. REMOVED IV. DC INSTRUCTION GIVEN AND VERBALIZED UNDERSTANDING. WAITING FOR DECORATOR LIGHTING FIXTURES.
--- NOTE | 2020-04-19 12:13 | NUR ---
FLU VACCINE GIVEN, NO REACTION NOTED.
--- NOTE | 2020-04-19 15:40 | NUR ---
PATIENT DC VIA WHEELCHAIR WITH DC INSTRUCTION AND PRESCRIPTION GIVEN AND VERBALIZED UNDERSTANDING. PATIENT IN STABLE CONDITION.
== END 2020-04-19 15:40 | disposition home or self-care (01) | DRG 720 ==
LOC: MED 09:27 → MTU 11:46
PROVIDERS: ADMIT Family Medicine; ATTEND Family Medicine
PROC: XW033E5 Introduction of Remdesivir Anti-infective into Peripheral Vein, Percutaneous Approach, New Technology Group 5 (ICD-10-PCS; principal; 2020-04-18)
DX: A41.9 Sepsis, unspecified organism (principal); U07.1 COVID-19; J12.89 Other viral pneumonia; E87.6 Hypokalemia; J45.901 Unspecified asthma with (acute) exacerbation; D64.9 Anemia, unspecified; J96.01 Acute respiratory failure with hypoxia; E44.0 Moderate protein-calorie malnutrition; Z68.23 Body mass index [BMI] 23.0-23.9, adult; E83.42 Hypomagnesemia
CPT/HCPCS: 36415; 36600; 71045; 80048; 80053; 80076; 80305; 81001; 82150; 82550; 82728; 82803; 83036; 83605; 83615; 83690; 83735; 83880; 84100; 84436; 84439; 84443; 84479; 84484; 85025; 85379; 85384; 85610; 85651; 85730; 86140; 86886; 86900; 86901; 87040; 87081; 87086; 87420; 87804; 93005; 94664; 99291; J0696; J1644; J2930; J7060; U0003